=== PATIENT | female | born 1990 | race African-American/Black ===

== ENCOUNTER → 2019-12-25 | Emergency (ER) | payer OTHER ==
[~2019-12-25] VITALS: Ht 162.6 cm; Wt 74.4 kg
[~2019-12-25] MED LIST: ALBUTEROL SULF8.5 GM INH; MUCINEX1200 MG PO; PROMETHAZINE-D118 ML ORAL
[2019-12-25 12:21] VITALS: BP 128/71
--- NOTE | 2019-12-25 12:22 | NUR ---
ED Nurse Note: Pt ambulated to ED d/t flu-like symptoms for a week. Denies fever, afebrile on triage. Placed on bed.
--- NOTE | 2019-12-25 12:42 | Emergency Room Report ---
History of Present Illness General Chief Complaint: Upper Respiratory Illness Source: Patient Present Illness HPI 29-year-old female presents to the emergency department complaining of 2 out of 10 in severity cough x1 week. Patient reports history of asthma in addition to intermittent smoking. She denies fevers or chills. She denies recent travel she reports both her sons have similar symptoms. Denies sore throat, ear pain, high fevers, lethargy, neck pain/stiffness, irritability, photophobia dehydration, N/V/D. Denies Cp, Palpitations, LOC, AMS, seizures, paresthesias, or changes in Hearing or vision, no Sudden severe MONTENEGRO. She did not receive this years flu vaccine. Allergies: Coded Allergies: No Known Allergies (Unverified , 12/25/19) Patient History Past Medical History: see triage record Past Surgical History: none Pertinent Family History: none Social History: Reports: smoking - intermittent Now: No Immunizations: UTD Reviewed Nursing Documentation: PMH: Agreed; PSxH: Agreed Nursing Documentation-PMH Past Medical History: No Stated History Review of Systems All Other Systems: negative except mentioned in HPI Physical Exam Vital Signs Date Time Temp Pulse Resp B/P (MAP) Pulse Ox O2 Delivery O2 Flow Rate FiO2 12/25/19 12:02 97.9 83 18 128/71 (90) 99 Room Air Sp02 EP Interpretation: reviewed, normal General Appearance: no apparent distress, alert, GCS 15, non-toxic Head: normocephalic, atraumatic Eyes: bilateral eye normal inspection, bilateral eye PERRL ENT: hearing grossly normal, normal pharynx, normal voice, TMs + canals normal , uvula midline, moist mucus membranes Neck: full range of motion, no meningismus Respiratory: chest non-tender, lungs clear, normal breath sounds, no accessory muscle use, speaking full sentences, wheezing - scant expiratory wheezes Cardiovascular #1: regular rate, rhythm, no edema Musculoskeletal: normal range of motion, gait/station normal, non-tender Neurologic: alert, motor strength/tone normal, oriented x3, sensory intact, responsive, speech normal Psychiatric: judgement/insight normal Skin: normal color, normal inspection Lymphatic: no adenopathy Medical Decision Making PA Attestation Dr. Flaherty Is my supervising Physician whom patient management has been discussed with. Diagnostic Impression: Primary Impression: Viral upper respiratory tract infection with cough ER Course 29-year-old female presents to the emergency department complaining of 2 out of 10 in severity cough x1 week. Patient reports history of asthma in addition to intermittent smoking. She denies fevers or chills. She denies recent travel she reports both her sons have similar symptoms. Denies sore throat, ear pain, high fevers, lethargy, neck pain/stiffness, irritability, photophobia dehydration, N/V/D. Denies Cp, Palpitations, LOC, AMS, seizures, paresthesias, or changes in Hearing or vision, no Sudden severe [place]GRO. She did not receive this years flu vaccine. Ddx considered but are not limited to URI, pneumonia, PE, strep pharyngitis, meningitis. Vital signs: Pt. is afebrile, the remaining VS are WNL H&PE are most consistent with URI- no meningeal signs, oropharynx is not involved, no evidence of bacterial infection at this time. ORDERS: none required at this time, the diagnosis is clinical ED INTERVENTIONS: None required at this time. DISCHARGE: At this time pt. is stable for d/c to home. Will provide printed patient care instructions, and any necessary prescriptions. Care plan and follow up instructions have been discussed with the patient prior to discharge. Last Vital Signs Date Time Temp Pulse Resp B/P (MAP) Pulse Ox O2 Delivery O2 Flow Rate FiO2 12/25/19 12:21 83 18 Room Air 12/25/19 12:21 97.9 128/71 99 Disposition: HOME, SELF-CARE Condition: Stable Referrals: Monique Mu[facility]oz [facility] + [facility] Patient Instructions: Upper Respiratory Infection, Adult Additional Instructions: Take medications as directed. Follow up with a Primary Care Provider in 3-5 days, even if your symptoms have resolved. --Please review list of primary care clinics, if you do not already have a primary care provider Return sooner to ED if new symptoms occur, or current symptoms become worse. - Please note that this Emergency Department Report was dictated using [employer]in[employer] technician technology software, occasionally this can lead to erroneous entry secondary to interpretation by the dictation equipment. Mary Hillman Dec 25, 2019 12:41
[2019-12-25 13:07] VITALS: BP 128/71
--- NOTE | 2019-12-25 13:07 | NUR ---
ER DISCHARGE NOTE: Patient is cleared to be discharged per ERMD, pt is aox4, on room air, with stable vital signs. pt was given dc and prescription instructions, pt was able to verbalize understanding, pt id band removed. pt is able to ambulate with steady gait. pt took all belongings.
== END | disposition home or self-care (01) ==
LOC: EMR 12:15
DX: J06.9 Acute upper respiratory infection, unspecified (principal); R05 Cough; J45.909 Unspecified asthma, uncomplicated
CPT/HCPCS: 99281